=== PATIENT | male | born 1980 | race African-American/Black ===

== ENCOUNTER 2018-02-06 11:00 | Emergency (ER) | payer MEDICAID ==
[~2018-02-06] VITALS: Ht 182.9 cm; Wt 136.1 kg
[2018-02-06 11:05] VITALS: BP 144/86
[2018-02-06] MEDS ORDERED: IBUPROFEN 800 MG TAB PO ONE (11:45)
== END 2018-02-06 13:31 | disposition home or self-care (01) ==
LOC: ER 11:00
DX: S90.02XA Contusion of left ankle, initial encounter (principal); V03.90XA Pedestrian on foot injured in collision with car, pick-up truck or van, unspecified whether traffic or nontraffic accident, initial encounter; Y08.89XA Assault by other specified means, initial encounter; Y93.89 Activity, other specified; Y99.8 Other external cause status; Y92.89 Other specified places as the place of occurrence of the external cause
CPT/HCPCS: 73590; 73610